=== PATIENT | female | born 1960 | race Hispanic/Latino ===

== ENCOUNTER → 2025-05-11 | Outpatient (CLI) | payer OTHER ==
--- NOTE | 2025-05-12 01:40 | HMCIMG ---
LEFT LOWER EXTREMITY VENOUS DOPPLER ULTRASOUND EXAMINATION. CLINICAL INDICATION: Left lower extremity pain. TECHNIQUE: Brito scale, color flow and spectral Doppler evaluation of the left lower extremity deep veins was performed. COMPARISON: None FINDINGS: The common femoral vein, superficial femoral vein, and popliteal vein are patent and compressible. The great saphenous vein is patent and compressible. The posterior tibial vein is patent and compressible. Normal respiratory variation and augmentation are noted. There is no evidence of occlusive or nonocclusive thrombus. IMPRESSION: No sonographic evidence of deep venous thrombosis in the left lower extremity. /[place]
== END | disposition home or self-care (01) ==
LOC: RAH 15:07
DX: I83.92 Asymptomatic varicose veins of left lower extremity (principal); M79.605 Pain in left leg; M79.89 Other specified soft tissue disorders
CPT/HCPCS: 93971